=== PATIENT | female | born 1935 | race Caucasian/White ===

== ENCOUNTER 2017-01-09 10:10 | Day surgery (SDC) | payer MEDICARE ==
--- NOTE | ~2017-01-09 | OP ---
Record Of Operation [facility] [address] [place]. [address] NAME: NERY TALLEY : 37 [place]US : [place] [facility] [place] [id number] AGE: 81 ADM/REG DATE : 01/09/17 MR#: [id number] REPORT SERV DATE: 01/09/17 DICTATED BY: SAULO CHAWLA DATE: 01/09/17 REPORT STATUS : Draft TRANSCRIBED BY: MODL DATE: 01/09/17 DATE OF PROCEDURE: 01/09/2017 PREPROCEDURE DIAGNOSIS: Gastrointestinal bleed. POSTPROCEDURE DIAGNOSES: Extensive diverticulosis all the way to the right colon, two polyps sessile measuring 2 mm. One at 80 cm near the splenic flexure in the transverse colon, and one at 5 cm in the rectum, anoscopy was performed with a clear plastic anoscope and grade 2 internal hemorrhoids were noted. PROCEDURE: Colonoscopy, with hot biopsy polypectomy, and anoscopy. DESCRIPTION OF PROCEDURE: The patient was taken to the endoscopy suite, positioned in the left lateral decubitus position. Informed consent was obtained followed by IV sedation delivered by [employer]. Digital rectal exam was performed. Slightly decreased sphincter tone. No masses. The scope was navigated with some difficulty to the rectosigmoid junction. Here there was some trauma to the rectosigmoid junction. The decision was made to switch from an adult to pediatric colonoscope. The patient had recently been started on steroids and there was concern over the quality of her tissue. The scope was then able to be navigated to the ileocecal valve where appendiceal orifice was identified. Prep was moderately adequate. There was some particular matter, but mostly liquid stool, which could be suctioned. Of note, on the way in a polyp was noted at 80 cm, which was distal transverse colon at the level of the splenic flexure. This was removed with hot biopsy polypectomy technique. Once the ileocecal valve was identified, cecal straps and appendiceal orifice. The scope was withdrawn over a 12-minute period of time, noting the extensive diverticula that had diverticula within the diverticula. The area of the rectosigmoid junction where there were some scuff tran on the mucosa, did not appear to be full thickness, and did not appear to have mucosal flaps. This was simply left alone. The scope was withdrawn into the rectum, where at 5 cm a diminutive polyp was noted, and it was removed again with hot biopsy polypectomy technique. The scope was withdrawn. Anoscopy was performed showing grade 2 internal hemorrhoids. These did not appear to be inflamed, engorged, or recently bled, and the scope was withdrawn. Based on the findings today, I would assume that the bleeding was actually from the diverticular disease, due to the extensive nature of it, and the patient has been treated with flaxseed as a fiber product of choice, and she has had very few problems with elimination. She will require repeat colonoscopy in five years, due to history of polyps. It is my pleasure participating in the care of your patient. LEWIS/DEMARIO Saulo Chawla M.D. / [id number] Record Of [address] [address] NAME: NERY TALLEY : 37 [place]US : [place] [facility] [place]#: [id number] AGE: 81 ADM/REG DATE : 01/09/17 MR#: [id number] REPORT SERV DATE: 01/09/17 DICTATED BY: SAULO CHAWLA DATE: 01/09/17 REPORT STATUS : Draft TRANSCRIBED BY: DEMARIO DATE: 01/09/17 CC: Tri Lopez M.D.
[~2017-01-09 10:10] MED LIST: B12250T PO; FOLIC PO; LES20 PO; LIVALO PO; MIRALAXPKT PO; MULTIPLE VIT PO; P10 PO; SYN.025B PO; SYN.05 PO; TRICOR PO; VITAMIN D1000 UNI1 PO; VITC500 PO
== END 2017-01-09 23:59 | disposition home or self-care (01) ==
LOC: DMU 10:10
PROVIDERS: Surgery
PROC: 0DBP8ZZ Excision of Rectum, Via Natural or Artificial Opening Endoscopic (ICD-10-PCS; 2017-01-09)
PROC: 0DBF8ZZ Excision of Right Large Intestine, Via Natural or Artificial Opening Endoscopic (ICD-10-PCS; principal; 2017-01-09 11:30)
DX: D12.3 Benign neoplasm of transverse colon (principal); K62.1 Rectal polyp; K57.30 Diverticulosis of large intestine without perforation or abscess without bleeding; K64.1 Second degree hemorrhoids
CPT/HCPCS: 88305